=== PATIENT | female | born 1975 | race Caucasian/White ===

== ENCOUNTER 2018-04-03 10:45 | Emergency (ER) | payer BC ==
[2018-04-03 10:53] VITALS: BMI 19.5
[2018-04-03] MEDS ORDERED: ONDANSETRON 4 MG/2 ML VIAL IVPUSH ONE (11:13)
[2018-04-03] MEDS ORDERED: morphine CARPU-JECT 4 MG/1 ML DISP.SYRIN IVPUSH ONE (11:13)
[2018-04-03] MEDS ORDERED: SODIUM CHLORIDE 1,000 ML IV ONE (11:13)
[2018-04-03] MEDS ORDERED: morphine SULFATE 4 MG/ML VIAL ONE (11:19)
[2018-04-03] MEDS ORDERED: ONDANSETRON 4 MG/2 ML VIAL ONE (11:19)
[2018-04-03 11:43] LABS: BASO % 0.8 % (0-2.0); HEMATOCRIT 40.3 % (32.4-45.2); HEMOGLOBIN 13.2 GM/dL (10.7-15.3); LYMPH % 11.2 % (8-40); MCH 28.4 pg (25.7-33.7); MCHC 32.7 g/dl (32.0-36.0); MEAN CELL VOLUME 86.9 fl (80-96); MEAN PLT VOLUME 8.5 fl (7.5-11.1); MONO % 2.4 % (3.8-10.2); NEUT % 85.6 % (42.8-82.8); PLATELET COUNT 203 K/MM3 (134-434); RBC 4.64 M/mm3 (3.60-5.2); RDW 13.7 % (11.6-15.6)
--- NOTE | 2018-04-03 11:48 | PDOC ---
History of Present Illness - General Chief Complaint: Vaginal Bleeding Stated Complaint: ABD PAIN Time Seen by Provider: 04/03/18 10:51 History Source: Patient Exam Limitations: No Limitations - History of Present Illness Travel History: No Initial Comments: 04/03/18 11:38 43-year-old female presents to ED with complaints of intermittent cramping to the lower abdominal region worse during her menstrual cycles for the past few months. Patient states was seen by her PSYCHOTHERAPIST SOCIAL WORKER who performed an ultrasound and has pending blood work on her next follow-up appointment in the next few weeks. Patient also states was told to see a wholesale and retail merchant but has not seen one as yet. Patient denies any bowel complaints, rectal pressure, urinary complaints, fever or chills. Patient states when the pain comes its a sharp type feeling to her lower abdominal region. Timing/Duration: reports: intermittent Quality: reports: moderate, cramping Abdominal Pain Onset Location: reports: suprapubic Pain Radiation: reports: no radiation Aggravating Factors: improves with: None Alleviating Factors: improves with: None Past History - Travel Traveled outside of the country in the last 30 days: No - Past Medical History Allergies/Adverse Reactions: Allergies Allergy/AdvReac Type Severity Reaction Status Date / Time Penicillins Allergy Intermediate Hives Verified 07/25/14 16:46 Home Medications: Ambulatory Orders NK [No Known Home Medication] 04/03/18 CVA: No COPD: No CHF: No Dementia: No Diabetes: No GI Disorders: No Disorders: No Hypercholesterolemia: No Seizures: No Thyroid Disease: No Other medical history: migraines - Surgical History Abdominal Surgery: Yes - Suicide/Smoking/Psychosocial Hx Smoking History: Never smoked Have you smoked in the past 12 months: No Hx Alcohol Use: No Drug/Substance Use Hx: No Substance Use Type: None Patient Lives Alone: No Lives with/in: spouse/SO Review of Systems - Review of Systems Able to Perform ROS?: Yes Constitutional: No: Symptoms Reported HEENTM: No: Symptoms Reported Respiratory: No: Symptoms reported Cardiac (ROS): No: Symptoms Reported ABD/GI: Yes: Abdominal cramping : No: Symptoms Reported Musculoskeletal: No: Symptoms Reported Integumentary: No: Symptoms Reported Hematologic/Lymphatic: No: Symptoms Reported *Physical Exam - Vital Signs Last Vital Signs Temp Pulse Resp BP Pulse Ox 99.2 F 67 18 117/72 10 L 04/03/18 10:48 04/03/18 10:48 04/03/18 10:48 04/03/18 10:48 04/03/18 10:48 - Physical Exam General Appearance: Yes: Nourished, Appropriately Dressed. No: Apparent Distress HEENT: negative: Pale Conjunctivae Respiratory/Chest: positive: Lungs Clear, Normal Breath Sounds. negative: Respiratory Distress, Accessory Muscle Use Cardiovascular: positive: Regular Rhythm, Regular Rate. negative: Murmur Female Pelvic Exam: positive: normal external exam, vaginal bleeding (bright red ) Gastrointestinal/Abdominal: positive: Soft, Tenderness (midsuprapubic) Integumentary: positive: Normal Color, Warm, Moist Neurologic: positive: Motor Strength 5/5 (ambulatory) ED Treatment Course - LABORATORY CBC & Chemistry Diagram: 04/03/18 11:33 04/03/18 11:33 - RADIOLOGY Radiology Studies Ordered: Category Date Time Status PELVIC / BLADDER US [US] Stat Ultrasound 04/03/18 11:20 Ordered Medical Decision Making - Medical Decision Making 04/03/18 11:24 Patient here with lower abdominal cramping which she states correlates with her menses. Patient denies endometriosis and fibroids and is currently being worked up by her METAL DEALER with a referral to gastroenterology. Patient exam with movement superpubic tenderness. Patient with no CVA tenderness, upper abdominal pain, or adnexal tenderness. Patient ordered for labs, urine, morphine and ultrasound. Patient may require CT but will obtain a ultrasound first. 04/03/18 11:57 Laboratory Tests 04/03/18 11:33 WBC 10.0 Hgb 13.2 Hct 40.3 Absolute Neuts (auto) 8.6 H Neutrophils % 85.6 H D 04/03/18 15:30 Patient with noted right ovarian cysts with the largest measuring 2.0 x 2.8 x 2.5 cm. Otherwise normal pelvic sonogram. Patient states pain was resolved moderately with morphine but states had an episode of diarrhea which he describes as brown and watery. When specifically asked about colitis patient states she thinks she was diagnosed with colitis 3-4 years ago here but did not follow-up with a wholesale and retail merchant. UA pending 04/03/18 15:30 Laboratory Tests 04/03/18 15:35 Urine Ketones 1+ H Urine Blood 2+ H Urine HCG, Qual Negative Patient currently menstruating. Patient ordered for abdominal CT along with a transvaginal ultrasound to view left ovary 04/03/18 18:54 CT shows mild concentric wall thickening is noted involving upper and middle thirds of the sigmoid colon suggestive of acute colitis as noted above. There is no obvious associated diverticuliosis that suggest diverticulitis. Patient be discharged home to follow-up with wholesale and retail merchant. *DC/Admit/Observation/Transfer Diagnosis at time of Disposition: Colitis - Discharge Dispostion Disposition: HOME Condition at time of disposition: Good - Referrals Referrals: Lester Michel [Primary Care Provider] - Gavino Ramirez MD [Staff Physician] - - Patient Instructions Printed Discharge Instructions: DI for Colitis Additional Instructions: Please follow up with referred wholesale and retail merchant. Please also read over instructions on colitis. - Post Discharge Activity
[2018-04-03 12:05] LABS: ALBUMIN 3.7 g/dl (3.4-5.0); ANION GAP 11 MMOL/L (8-16); BLOOD UREA NITROGEN 20 mg/dL (7-18); CALCIUM 8.9 mg/dL (8.5-10.1); CHLORIDE 111 mmol/L (98-107); CO2 20 mmol/L (21-32); GLUCOSE,RANDOM 102 mg/dL (74-106); LIPASE 151 U/L (73-393); MAGNESIUM 2.1 mg/dL (1.8-2.4); POTASSIUM 3.7 mmol/L (3.5-5.1); SGOT/AST 13 U/L (15-37); SODIUM 142 mmol/L (136-145); TOT PROT 7.4 g/dl (6.4-8.2)
[2018-04-03 12:06] LABS: ALK PHOS 54 U/L (45-117); CREATININE 0.5 mg/dL (0.55-1.3); SGPT/ALT 16 U/L (13-61)
[2018-04-03 15:51] LABS: URINE APPEARANCE CLEAR; URINE BILIRUBIN NEGATIVE (<2.0 mg/dL); URINE COLOR LTYELLOW; URINE GLUCOSE (UA) NEGATIVE (NEGATIVE); URINE KETONE 1+ (NEGATIVE); URINE LEUK ESTERASE NEGATIVE (NEGATIVE); URINE NITRITE NEGATIVE (NEGATIVE); URINE PROTEIN NEGATIVE (NEGATIVE); URINE UROBILINOGEN NEGATIVE mg/dL (0.2-1.0)
[2018-04-03 15:52] LABS: HCG,QUALITATIVE URINE Negative
[2018-04-03 16:05] LABS: EPI CELLS RARE /HPF (FEW); URINE MUCUS RARE
--- NOTE | 2018-04-03 16:10 | PDOC ---
*Physical Exam - Vital Signs Last Vital Signs Temp Pulse Resp BP Pulse Ox 99.2 F 67 18 117/72 10 L 04/03/18 10:48 04/03/18 10:48 04/03/18 10:48 04/03/18 10:48 04/03/18 10:48 ED Treatment Course - LABORATORY CBC & Chemistry Diagram: 04/03/18 11:33 04/03/18 11:33 - ADDITIONAL ORDERS Additional order review: Laboratory Results 04/03/18 04/03/18 04/03/18 15:35 12:21 11:33 Sodium 142 Potassium 3.7 Chloride 111 H Carbon Dioxide 20 L Anion Gap 11 BUN 20 H Creatinine 0.5 L Creat Clearance w eGFR > 60 Random Glucose 102 Calcium 8.9 Magnesium 2.1 Total Bilirubin 1.0 AST 13 L ALT 16 Alkaline Phosphatase 54 Total Protein 7.4 Albumin 3.7 Lipase 151 Urine Color Ltyellow Urine Appearance Clear Urine pH 5.0 D Ur Specific Hendricks 1.024 Urine Protein Negative Urine Glucose (UA) Negative Urine Ketones 1+ H Urine Blood 2+ H Urine Nitrite Negative Urine Bilirubin Negative Urine Urobilinogen Negative Ur Leukocyte Esterase Negative Urine WBC (Auto) 4 Urine RBC (Auto) 11 Ur Epithelial Cells Rare Urine Mucus Rare Urine HCG, Qual Negative Blood Type O POSITIVE Antibody Screen Negative 04/03/18 11:33 RBC 4.64 MCV 86.9 MCHC 32.7 RDW 13.7 MPV 8.5 Neutrophils % 85.6 H D Lymphocytes % 11.2 D Monocytes % 2.4 L Eosinophils % 0.0 D Basophils % 0.8 - Medications Given in the ED: ED Medications Discontinued Medications Generic Name Dose Route Start Last Admin Trade Name Brightq PRN Reason Stop Dose Admin Sodium Chloride 1,000 mls @ 1,000 mls/hr 04/03/18 11:13 04/03/18 11:38 Normal Saline - IV 04/03/18 12:12 1,000 mls/hr ONCE ONE Administration Morphine Sulfate 4 mg 04/03/18 11:13 04/03/18 11:38 Morphine Injection - IVPUSH 04/03/18 11:14 4 mg ONCE ONE Administration Ondansetron HCl 4 mg 04/03/18 11:13 04/03/18 11:38 Zofran Injection IVPUSH 04/03/18 11:14 4 mg ONCE ONE Administration Medical Decision Making - Medical Decision Making 04/03/18 16:08 Patient seen and evaluated with the nurse practitioner. I agree with the overall evaluation, assessment, and management with the following summary of visit: 43-year-old female currently menstruating presents with severe pelvic pain that began acutely this morning, no associated nausea/vomiting/diarrhea/ constipation. Some dysuria, no vaginal discharge. Has questionable history of colitis, no other relevant CABIN MAN history. Vitals as noted, afebrile. O2 incorrect, 100% on my exam Urine negative. Arrived in moderate to severe discomfort, crouching by the stretcher. Abdomen was soft and nondistended but tender in the suprapubic region, no CVA tenderness 43-year-old female with severe pelvic pain, question CABIN MAN versus etiology, less likely GI. Emergent transabdominal ultrasound showed right ovarian cyst with normal right ovarian flow, left ovary not visualized. Will follow-up with transvaginal ultrasound. CT of the abdomen and pelvis No leukocytosis, chemistries are normal, urinalysis is clear except for blood ( menses) *DC/Admit/Observation/Transfer Diagnosis at time of Disposition: Pelvic pain in female - Referrals Referrals: Lester Michel [Primary Care Provider] - - Patient Instructions - Post Discharge Activity
[2018-04-03 17:11] VITALS: BP 100/64; PULSE 52; TEMP 99.3
== END 2018-04-03 20:50 | disposition home or self-care (01) ==
LOC: JER 10:45
PROC: 3E033NZ Introduction of Analgesics, Hypnotics, Sedatives into Peripheral Vein, Percutaneous Approach (ICD-10-PCS; principal; 2018-04-03)
PROC: 3E033GC Introduction of Other Therapeutic Substance into Peripheral Vein, Percutaneous Approach (ICD-10-PCS; 2018-04-03)
PROC: 3E0337Z Introduction of Electrolytic and Water Balance Substance into Peripheral Vein, Percutaneous Approach (ICD-10-PCS; 2018-04-03)
DX: K52.9 Noninfective gastroenteritis and colitis, unspecified (principal)
CPT/HCPCS: 36415; 74176-TC; 76830-TC; 76856-TC; 80053; 81003; 81015; 83690; 83735; 84703; 85025; 86850; 86900; 86901; 99282-25; J7030

== ENCOUNTER 2018-09-05 05:24 | Day surgery (SDC) | payer BC ==
[2018-09-04 09:00] VITALS: BMI 19.5
[2018-09-05] MEDS ORDERED: MIDAZOLAM HCL 2 MG/2 ML SINGLE DOSE VIAL ONE (11:30)
[2018-09-05] MEDS ORDERED: PROPOFOL 20 ML ONE ×2 (11:33)
[2018-09-05] MEDS ORDERED: oxyCODONE HCL 5 MG TABLET PO PRN (11:47)
[2018-09-05] MEDS ORDERED: ONDANSETRON 4 MG/2 ML VIAL IVPUSH PRN (11:47)
[2018-09-05] MEDS ORDERED: PROMETHAZINE HCL 25 MG/1 ML VIAL IVPB PRN (11:47)
--- NOTE | 2018-09-05 11:59 | HP ---
History & Physical Update - History History: No Change - Physical Physical: No Change - Assessment Assessment: No Change - Plan Plan: No Change (Agree with H&P from 09/03/18 - for hysteroscopy D&C)
[2018-09-05] MEDS ORDERED: LACTATED RINGERS SOLUTION 1,000 ML IV SCH (12:00)
[2018-09-05] MEDS ORDERED: DESFLURANE GAS 240 ML BOTTLE IH ONE (12:23)
[2018-09-05 13:38] VITALS: TEMP 98.1
[2018-09-05 14:35] VITALS: BP 127/74; PULSE 77
--- NOTE | 2018-09-06 07:08 | OP ---
Operative Note - Note: Operative Date: 09/05/18 ([id number]) Pre-Operative Diagnosis: menorrhagia, possible cervical polyp on ultrasound Operation: exam under anesthesia Findings: no cervix appreciated with palpation/examination Post-Operative Diagnosis: Same as Pre-op Surgeon: Cathie Funk Anesthesiologist/CLOTHING SALES ASSISTANT: Ricci Son Anesthesia: General (with LMA) Specimens Removed: none Estimated Blood Loss (mls): 0 Operative Report Dictated: Yes
--- NOTE | 2018-09-06 07:53 | OP ---
DATE OF OPERATION: 09/05/2018 PREOPERATIVE DIAGNOSIS: Menorrhagia, possible cervical polyp on transvaginal ultrasound. POSTOPERATIVE DIAGNOSIS: Menorrhagia, possible cervical polyp on transvaginal ultrasound. PROCEDURE: Examination under anesthesia. Intended procedure hysteroscopic resection of polyp and dilatation and curettage. SURGEON: Cathie Funk MD ANESTHESIA: LMA by Ricci Son CRNA. COMPLICATIONS: Interrelated performed procedure secondary to anatomical difficulties. . ESTIMATED BLOOD LOSS: 0. DISPOSITION: Stable to PACU. BRIEF HISTORY AND PROCEDURE: Patient is a 43-year-old female who had been seen in the office with complaints of heavy periods, and on ultrasound was found to have a possible endocervical polyp. The patient had an exam in the office and an endometrial biopsy has failed secondary to patient intolerance and inability to locate cervix. The patient was then advised an exam under anesthesia may facilitate intrauterine sampling. The patient was consented for the procedure in the office and admitted to [facility] on September 05, 2018. The patient was taken to the operating room, placed in the dorsal lithotomy position, and given LMA for anesthesia. A speculum was placed in the vagina, and no discrete cervix was appreciated. At this time, pelvic examination was completed. The uterus was appreciated, and on fundal pressure on the uterus in conjunction with the vaginal exam at the same time, no cervix was appreciated that was easily palpated. Another examination with the speculum for visualization was completed. At this time, it was decided to abort the procedure as there was no obvious cervix and no cervical os which I was comfortable grasping with an instrument, and the patient was awoken from anesthesia and taken to PACU in stable condition at this time. CATHIE FUNK DO /[id number]
== END 2018-09-05 14:40 | disposition home or self-care (01) ==
LOC: JASU-SURG 05:24
PROVIDERS: ATTEND Obstetrics & Gynecology
PROC: 0UJD7ZZ Inspection of Uterus and Cervix, Via Natural or Artificial Opening (ICD-10-PCS; principal; 2018-09-05 12:00)
DX: N92.0 Excessive and frequent menstruation with regular cycle (principal); Z53.8 Procedure and treatment not carried out for other reasons
CPT/HCPCS: 94760

== ENCOUNTER 2018-12-17 05:01 | Day surgery (SDC) | payer BC | END 2018-12-17 14:00 | disposition home or self-care (01) | LOC: JASU-SURG 05:01 ==

== ENCOUNTER 2024-11-07 20:49 | Observation (INO) | payer BC ==
[2024-11-07 21:17] VITALS: BMI 18.9
[2024-11-07] MEDS ORDERED: FAMOTIDINE 20 MG/50 ML IVPB 20 MG/50 ML MG IVPB ONE (21:54)
[2024-11-07] MEDS ORDERED: ACETAMINOPHEN INJECTION 100 ML ONE (22:15)
[2024-11-07] MEDS: SODIUM CHLORIDE 0.9% 500 ML INFUS.BAG IV ONE (22:25)
[2024-11-07] MEDS: ACETAMINOPHEN 1000 MG/100 ML BAG IVPB ONE (22:25)
[2024-11-07] MEDS: MAG HYDROX/AL HYDROX/SIMETH 30 ML UNIT-DOSE CUP PO ONE (22:25)
[2024-11-07] MEDS ORDERED: morphine SULFATE 4 MG/ML VIAL ONE (22:47)
[2024-11-07] MEDS: morphine CARPU-JECT 4 MG/1 ML DISP.SYRIN IVPUSH ONE (22:53)
[2024-11-07 22:55] LABS: ABSOLUTE IMMATURE GRANULOCYTES 0.02 x10^3/uL (0.0-0.031); BASOPHILS # 0.04 x10^3/uL (0.01-0.08); EOSINOPHIL % 1.1 % (0.7-5.8); EOSINOPHILS # 0.08 x10^3/uL (0.04-0.36); HEMATOCRIT 38.2 % (34.1-44.9); HEMOGLOBIN 12.2 g/dL (11.2-15.7); MCHC 31.9 g/dl (32.2-35.5); MEAN CELL VOLUME 87.2 fl (79.4-94.8); MEAN PLT VOLUME 10.6 fl (9.4-12.3); MONOCYTE # 0.36 x10^3/uL (0.24-0.86); PLATELET COUNT 224 x10^3/uL (182-369); RDW 13.2 % (12.3-16.6)
[2024-11-07 23:05] LABS: INR 1.02 (0.83-1.09); PROTHROMBIN TIME (PATIENT) 11.2 SEC (9.7-13.0)
[2024-11-07 23:08] LABS: ACTIVATED PTT 28.3 SECONDS (25.2-36.5)
[2024-11-07 23:15] LABS: POTASSIUM 3.9 mmol/L (3.5-5.1)
[2024-11-07 23:17] LABS: CALCIUM 10.2 mg/dL (8.5-10.1)
[2024-11-07 23:18] LABS: ALBUMIN 3.6 g/dl (3.4-5.0); BLOOD UREA NITROGEN 8.1 mg/dL (7-18)
[2024-11-07 23:21] LABS: CREATININE 0.5 mg/dL (0.55-1.3)
[2024-11-07 23:22] LABS: BILIRUBIN,TOTAL 0.8 mg/dL (0.2-1); TOT PROT 7.1 g/dl (6.4-8.2)
[2024-11-08 00:26] LABS: PH,URINE 7.5 (5.0-8.0); URINE APPEARANCE CLEAR; URINE BILIRUBIN NEGATIVE (NEGATIVE); URINE COLOR YELLOW; URINE GLUCOSE (UA) NEGATIVE (NEGATIVE); URINE KETONE NEGATIVE (NEGATIVE); URINE LEUK ESTERASE NEGATIVE (NEGATIVE); URINE NITRITE NEGATIVE (NEGATIVE); URINE PROTEIN NEGATIVE (NEGATIVE); URINE UROBILINOGEN 0.2 mg/dL (0.2-1.0)
[2024-11-08 00:29] LABS: HCG,QUALITATIVE URINE Negative
[2024-11-08] MEDS ORDERED: KETOROLAC TROMETHAMINE 15 MG/ML VIAL ONE (04:31)
[2024-11-08] MEDS: SODIUM CHLORIDE 0.9% 500 ML INFUS.BAG IV ONE (04:40)
[2024-11-08] MEDS: KETOROLAC TROMETHAMINE 15 MG/ML VIAL IVPUSH ONE ×2 (04:40→16:31)
[2024-11-08] MEDS: ACETAMINOPHEN/CAFFEINE/BUTALBITAL 1 TAB PO ONE (05:15)
[2024-11-08] MEDS: CIPROFLOXACIN 200 MG/D5W 100 ML IVPB ONE (05:16)
[2024-11-08] MEDS: SODIUM CHLORIDE 1,000 ML IV SCH (05:36)
[2024-11-08] MEDS ORDERED: ACETAMINOPHEN 1000 MG/100 ML BAG IVPB PRN (10:07)
[2024-11-08] MEDS: ACETAMINOPHEN 1000 MG/100 ML BAG IVPB PRN (10:40)
[2024-11-08] MEDS: ONDANSETRON 4 MG/2 ML VIAL IVPUSH PRN (11:10)
[2024-11-08] MEDS ORDERED: ACETAMINOPHEN INJECTION 100 ML ONE (15:10)
[2024-11-08] MEDS ORDERED: oxyCODONE HCL 5 MG TABLET PO PRN (15:48)
[2024-11-08] MEDS: DICYCLOMINE HCL 10 MG CAPSULE PO PRN (16:36)
[2024-11-08] MEDS: PANTOPRAZOLE 40 MG TABLET PO SCH (21:29)
[2024-11-09 07:13] LABS: ABSOLUTE IMMATURE GRANULOCYTES 0.01 x10^3/uL (0.0-0.031); BASOPHILS # 0.03 x10^3/uL (0.01-0.08); EOSINOPHIL % 1.5 % (0.7-5.8); EOSINOPHILS # 0.07 x10^3/uL (0.04-0.36); HEMATOCRIT 31.4 % (34.1-44.9); HEMOGLOBIN 9.7 g/dL (11.2-15.7); MCHC 30.9 g/dl (32.2-35.5); MEAN PLT VOLUME 9.9 fl (9.4-12.3); MONOCYTE % 6.6 % (4.7-12.5); PLATELET COUNT 167 x10^3/uL (182-369); RDW 13.4 % (12.3-16.6)
[2024-11-09 07:37] LABS: POTASSIUM 3.7 mmol/L (3.5-5.1)
[2024-11-09 07:41] LABS: CALCIUM 8.9 mg/dL (8.5-10.1)
[2024-11-09 07:42] LABS: BLOOD UREA NITROGEN 10.6 mg/dL (7-18)
[2024-11-09 07:45] LABS: CREATININE 0.5 mg/dL (0.55-1.3)
[2024-11-09 07:47] LABS: BILIRUBIN,TOTAL 1.3 mg/dL (0.2-1); TOT PROT 5.3 g/dl (6.4-8.2)
[2024-11-09 07:52] LABS: ALBUMIN 2.8 g/dl (3.4-5.0)
[2024-11-09 09:13] VITALS: BP 107/63; PULSE 52; RESP 16; TEMP 97.9
[2024-11-09 10:53] LABS: ABSOLUTE IMMATURE GRANULOCYTES 0.02 x10^3/uL (0.0-0.031); BASOPHILS # 0.02 x10^3/uL (0.01-0.08); EOSINOPHIL % 1.4 % (0.7-5.8); EOSINOPHILS # 0.07 x10^3/uL (0.04-0.36); HEMATOCRIT 39.4 % (34.1-44.9); MCHC 30.5 g/dl (32.2-35.5); MEAN CELL VOLUME 89.1 fl (79.4-94.8); MONOCYTE # 0.22 x10^3/uL (0.24-0.86); MONOCYTE % 4.4 % (4.7-12.5); PLATELET COUNT 198 x10^3/uL (182-369); RDW 13.4 % (12.3-16.6)
[2024-11-09 11:20] LABS: IRON SERUM 127 ug/dL (50-175)
[2024-11-09 11:21] LABS: TOTAL IRON BINDING CAPACITY 284 ug/dL (250-450)
== END 2024-11-09 13:12 | disposition home or self-care (01) ==
LOC: JER 20:49 → JERBED 11-08 03:56 → J7W 11-08 05:33
PROVIDERS: ADMIT Family Medicine; ATTEND Family Medicine
PROC: 3E033NZ Introduction of Analgesics, Hypnotics, Sedatives into Peripheral Vein, Percutaneous Approach (ICD-10-PCS; 2024-11-08)
PROC: 3E0333Z Introduction of Anti-inflammatory into Peripheral Vein, Percutaneous Approach (ICD-10-PCS; 2024-11-08)
PROC: 3E03329 Introduction of Other Anti-infective into Peripheral Vein, Percutaneous Approach (ICD-10-PCS; 2024-11-08)
PROC: 3E0337Z Introduction of Electrolytic and Water Balance Substance into Peripheral Vein, Percutaneous Approach (ICD-10-PCS; 2024-11-08)
PROC: 0DB68ZX Excision of Stomach, Via Natural or Artificial Opening Endoscopic, Diagnostic (ICD-10-PCS; principal; 2024-11-08 15:00)
DX: K57.92 Diverticulitis of intestine, part unspecified, without perforation or abscess without bleeding (principal); K59.09 Other constipation; K29.70 Gastritis, unspecified, without bleeding; R73.03 Prediabetes; G43.909 Migraine, unspecified, not intractable, without status migrainosus; R00.1 Bradycardia, unspecified; R10.9 Unspecified abdominal pain; Z88.0 Allergy status to penicillin
CPT/HCPCS: 36415; 74174-TC; 80048; 80053; 81003; 82728; 83540; 83550; 83605; 83690; 83735; 84484; 84703; 85025; 85610; 85730; 87086; 88305-TC; 88342-TC; 93005; 93010; 96361; 96365; 96366; 96367; 96375; 96376; 99285-25; G0378; J0131; Q9967